=== PATIENT | female | born 2000 | race Caucasian/White ===

== ENCOUNTER 2020-11-07 21:13 | Outpatient (CLI) | payer OTHER ==
[~2020-11-07] VITALS: Ht 167.6 cm; Wt 73.6 kg
--- NOTE | 2020-11-07 21:35 | NUR ---
Rfepeat SVE with no changes noted. Pt reports "the pain in my stomach is a lot less" Discharge instructions reviewed with pt and spouse. Questions invited and answered.
--- NOTE | 2020-11-07 21:40 | NUR ---
Ambulatory to unit for labor assessment, accompanied by spouse. Oriented to room, monitor,plan of care.
[2020-11-09] MEDS ORDERED: PRENATAL PO (21:57)
[2020-11-09] MEDS ORDERED: NATURAL IRON65 MG PO (21:58)
== END 2020-11-07 22:45 | disposition home or self-care (01) ==
LOC: LDRO 21:13 → COL.ER 21:13 → LDR 21:35 → COL.ER 22:45
DX: Z34.90 Encounter for supervision of normal pregnancy, unspecified, unspecified trimester (principal)
CPT/HCPCS: OP

== ENCOUNTER 2020-11-10 06:40 | Inpatient (IN) | payer OTHER ==
[~2020-11-10] VITALS: Ht 167.6 cm; Wt 74.1 kg
[2020-11-10] VITALS (14 sets, daily range): BP systolic 92–138; BP diastolic 52–90; PULSE 67–118; TEMP 97.9–99
--- NOTE | 2020-11-10 06:35 | NUR ---
PATIENT TO LR 3 FOR CHECK. TATIANNAT COMPLAINS OF LEAKING OF FLUID AND CONTRACTIONS. PATIENT STATES HER WATER BROKE AT 0556. CONTRACTIONS EVERY 2 MINUTES. PATIENT CHANGED INTO GOWN. ON EFM, ASSESMENT COMPLETE, SVE PREFORMED. DR NOLAND CALLED TO [facility] FOR DELIVERY. PREPPEED FOR DELIVERY. IV STARTED BY ROSAMARIA KNOX. CONSENTS SIGNED. EMOTIONAL SUPPOORT PROVIDED
[~2020-11-10 06:40] MED LIST: NATURAL IRON65 MG PO; PRENATAL PO
[2020-11-10 07:24] LABS: HEMOGLOBIN 10.3 g/dl (12.5-16.0); MEAN CELL VOLUME 87 fl (80.0-100.0); MEAN CORPUSCULAR HEMOGLOBIN 28 pg (27.0-31.0); MEAN CORPUSCULAR HGB CONC 33 g/dl (33.0-37.0); MEAN PLATELET VOLUME 10.4 fl (7.4-10.4); PLATELET COUNT 223 K/mm3 (130-400); RED BLOOD COUNT 3.64 M/mm3 (4.10-5.30); REDCELL DISTRIBUTION WIDTH-CV 15.5 % (11.5-14.5)
[2020-11-10 07:27] LABS: HEMATOCRIT 31.5 % (37.0-47.0)
--- NOTE | 2020-11-10 07:27 | NUR ---
BY DR NOLAND. TO MOTHERS CHEST IN CARE OF ROSAMARIA DISLA DELIVERD AT 0729. PITOCIN STARTED AT 333 MLS/ HR. 2ND DEGREE AND PERIURETHRAL REPAIRED BY DR NOLAND. REOVERY STARTED AT 0745
[2020-11-10 09:12] LABS: BAND 4 % (0-10); LYMPHOCYTE 4 % (20.0-51.0); MYELOCYTE 1 % (0-0); NEUTROPHILS 86 % (42.0-75.2); PLATELET ESTIMATE NORMAL (NORMAL)
[2020-11-10 09:13] LABS: ANISOCYTOSIS 1+; HYPOCHROMIA 1+
[2020-11-11 04:30] VITALS: BP 108/56; PULSE 67; TEMP 98.5
[2020-11-11 07:49] LABS: PATHOLOGY DIFF REVIEW OK
[2020-11-11 07:55] VITALS: BP 104/64; PULSE 70; TEMP 98.3
[2020-11-11 08:07] LABS: HEMATOCRIT 28.2 % (37.0-47.0); HEMOGLOBIN 8.8 g/dl (12.5-16.0)
--- NOTE | 2020-11-11 09:19 | NUR ---
Initial visit attempt; Patient indisposed, Ambulance Operations Supervisor left card of congratulations for the of her daughter and information regarding the availability of spiritual care at [facility].
[2020-11-11] MEDS ORDERED: IBU600 MG PO (13:11)
== END 2020-11-11 15:45 | disposition home or self-care (01) | DRG 807 ==
LOC: LDR 06:40 → OB 06:40
PROVIDERS: ADMIT Obstetrics & Gynecology
PROC: 10E0XZZ Delivery of Products of Conception, External Approach (ICD-10-PCS; principal; 2020-11-10)
PROC: 0KQM0ZZ Repair Perineum Muscle, Open Approach (ICD-10-PCS; 2020-11-10)
PROC: 0UQMXZZ Repair Vulva, External Approach (ICD-10-PCS; 2020-11-10)
DX: O99.02 Anemia complicating childbirth (principal); Z37.0 Single live birth; Z3A.39 39 weeks gestation of pregnancy; D64.9 Anemia, unspecified; O71.82 Other specified trauma to perineum and vulva; O70.1 Second degree perineal laceration during delivery; O26.893 Other specified pregnancy related conditions, third trimester; Z67.11 Type A blood, Rh negative
CPT/HCPCS: J2590; J7120